=== PATIENT | male | born 1935 | race Caucasian/White ===

== ENCOUNTER → 2016-07-19 | Outpatient (CLI) | payer MEDICARE ==
[~2016-07-19] MED LIST: GLYB2.5T2 PO; IOHEXOL 180 MG/ML 10 ML VIAL. ONE; NAPR220C4 PO; methylPREDNISolone ACETATE 40 MG/ML VIAL. ONE; methylPREDNISolone ACETATE 80 MG/ML VIAL. ONE
--- NOTE | 2016-07-20 04:10 | PAIN ---
DATE OF SERVICE: 07/19/2016 INITIAL CONSULTATION CHIEF COMPLAINT: Low back and bilateral lower extremity pain, right greater than left. HISTORY OF PRESENT ILLNESS: This is a 81-year-old male who presents with history of pain in low back for about 6 months now increasing without result of any specific injury or accident he is aware of. This came up overtime with increasing pain in the low back and bilateral lower extremities, worse on the right side than the left, with posterior gluteus, posterior thighs and into the lower legs with cramping in the lower legs as well. Also, some pain in the great toes, more on the left than the right, but in the leg, more on the right than the left. The patient reports a constant ache and tightness, increased with walking and standing, sitting or lying down is the best. The patient reports it awakes him from sleep, but not every night. He reports it is a constant pain, radiating, aching in the lower extremities, again mostly in the posterior gluteus, posterior thighs, posterior calves with a constant tightness. The patient reports it does not affect his bowel and bladder control, but does affect his ability to walk significantly. He usually walks about 2 miles a day, but is unable do that for the past several months because of the pain. The patient reports no loss of motor function, but significant fatigability, especially on the right side, with walking more than about 100 yards. The patient reports no other complaints. PAST MEDICAL AND SURGICAL HISTORY: Significant for hypertension, type 2 diabetes, arthritis. Previous surgeries include right knee arthroscopy. Otherwise, the patient has been in good health. CURRENT MEDICATIONS: Include glyburide, Aleve [id number] and Tylenol. FAMILY HISTORY: Significant for diabetes and heart disease. SOCIAL HISTORY: The patient drinks alcohol only very rarely. Does not smoke. He is single. Lives on his own. He is retired. He lives locally in [place], [place]. ALLERGIES: The patient has no known drug allergies. REVIEW OF SYSTEMS: The patient's review of systems is positive for those items mentioned in the history of present illness. All systems reviewed and otherwise negative. It is complete, full and well documented on the patient's chart. IMAGING STUDIES: The patient did have MRI scan showing prominent degenerative changes in the lumbar spine with stenosis at several levels with severe spinal stenosis at L3-L4, moderate at L4-L5 and L5-S1 with broad-based central subligamentous disc protrusion at L5-S1, bilateral neural foraminal narrowing and some mild stenosis at this level as well. Also, L4-L5 shows a iigpb-az-jauzbkzs-sized broad-based disk bulge, more prominent on the left side with moderate central canal stenosis noted as well and left-sided neural foraminal narrowing. PHYSICAL EXAMINATION: VITAL SIGNS: Today, the patient's blood pressure is 128/93, pulse 84, respirations 18, temperature 97.5 degrees Fahrenheit, height 6 feet 1 inch, weight is 199 pounds. GENERAL: The patient is awake, alert, oriented, appropriate, very pleasant demeanor. HEENT: Shows normocephalic and atraumatic. Extraocular movements are intact and symmetrical. Oral cavity shows mucous membranes are moist and pink. Dentition is intact. NECK: Shows anterior throat supple without palpable lymphadenopathy noted. Swallow reflex is symmetrical. Neck shows full rotational motion of the cervical spine without tenderness or difficulty including extension and flexion. CHEST: Shows normal on inspection. Breath sounds are clear to auscultation bilaterally. HEART: Shows S1 and S2 clear. No murmurs are auscultated. Abdomen is normal in appearance, soft, nontender, nondistended. No palpable organomegaly is noted. No rebound or guarding demonstrated. BACK: Shows spine grossly midline. Normal-appearing thoracic kyphosis and lumbar lordotic curvature. No previous bruises, lesions, rashes or scars are demonstrated. With inspection, lumbar paraspinous musculature is symmetrical without evidence of atrophy or hypertrophy. On palpation, it is moderately tender in the lower lumbar distribution bilaterally, but only in the lowest aspect of the lumbar paraspinous muscles and is significantly tender, but appears equal in tenderness, right and left. No tenderness over the sacrum or sacroiliac regions. The patient shows good rotational motion of the lumbar spine, both laterally, greater than 10 degrees right and left, as well as extension greater than 10 degrees, forward flexion to 45 degrees without pain reported. Lower extremities show deep tendon reflexes at 1+ in the patellar and tendo calcaneus tendons. Motor exam is strong with dorsiflexion, extension, quadriceps and hamstring flexion rated at 5/5 bilaterally. The patient's peripheral pulses are 1+ posterior tibial and dorsalis pedis pulses. No peripheral edema is noted. No clubbing, no cyanosis. Lower extremities are warm and dry to touch, equal in color and appearance. Straight leg raise noted to be negative for significant reproduction of radicular pain bilaterally. Gaenslen's and Derek's maneuvers are negative bilaterally as well. The patient is able to stand, stand on his toes with some difficulty with ambulation. He is somewhat unbalanced when trying to stand on his toes and also reports some minor dizziness with standing up quickly, this did pass after a few seconds, but has an antalgic gait, appears to favor the right lower extremity to a mild extent, but again not using any assistive devices such as canes or walkers to ambulate. IMPRESSION: 1. This is a 81-year-old male with approximately 6-month history of increasing low back and bilateral lower extremity pain, worse on the right than the left, in a radicular fashion. 2. MRI scan as noted. 3. Arthritis. 4. Hypertension. 5. Type 2 diabetes. PLAN: Options were discussed with the patient including conservative medical management, physical therapy, interventional techniques. He would like to proceed with interventional techniques. We discussed a lumbar epidural steroid injection using description as well as anatomical models to describe the procedure. Risks were then discussed including but not limited to bleeding, infection, possibility of epidural hematoma, subsequent neurologic compromise, dural puncture, headaches, spinal cord and/or nerve damage, side effects of steroid medication and poor results regarding pain control. The patient understands and wishes to proceed. The patient will return to clinic in approximately 2 weeks for followup, was counseled on return appointment, activity level and side effects to be aware of. DIAGNOSES: Lumbar radiculopathy with lumbar degenerative disc disease and lumbar spinal stenosis. PROCEDURE: Lumbar epidural steroid injection in translaminar approach at the L5-S1 level using C-arm fluoroscopic guidance under sterile prep and drape using local anesthetic. MEDICATIONS AND INJECTIONS: Depo-Medrol 120 mg plus 10 mL preservative-free normal saline and 2 mL Isovue for contrast. CONDITION AT DISCHARGE: Stable. The patient tolerated procedure well, had no complications. MARIAH ROY MD DR: PIETER/chava JOB#: [id number] / [id number] ROMEO Tanner MD
== END | disposition home or self-care (01) ==
LOC: PNCL 10:15
PROVIDERS: ATTEND Anesthesiology
DX: M51.16 Intervertebral disc disorders with radiculopathy, lumbar region (principal); M48.06 Spinal stenosis, lumbar region; I10 Essential (primary) hypertension; E11.9 Type 2 diabetes mellitus without complications; M19.90 Unspecified osteoarthritis, unspecified site
CPT/HCPCS: 62323; J1030; J1040

== ENCOUNTER → 2016-08-01 | Outpatient (CLI) | payer MEDICARE ==
--- NOTE | 2016-08-02 03:48 | PAIN ---
DATE OF SERVICE: 08/01/2016 PROGRESS NOTE DIAGNOSES: Lumbar radiculopathy with lumbar spinal stenosis and lumbar degenerative disc disease. HISTORY OF PRESENT ILLNESS: The patient is a 81-year-old male who returns for followup status post lumbar epidural steroid injection x 1. The patient reports about 90% improvement in his low back and right greater than left lower extremity pain. The patient reports significant improvement, he is increasing his activity with much greater ease and comfort, he is sleeping well at night, only has a dull ache left in the low back and some in the calves bilaterally, but that is all. The patient reports his pain is a 4 on a scale of 10 in its absolute worst and only with extended walking or standing. The patient has been increasing activity to a significant extent and doing well without significant limitation. The patient reports no new motor or sensory deficits, no new bowel or bladder incontinence or other complaints. Just some minor pain in the low back and legs as noted. PHYSICAL EXAMINATION: VITAL SIGNS: The patient's blood pressure is 148/71, pulse 75, respirations 18, temperature 97.4 degrees Fahrenheit, height 6 feet 1 inch, weight is 193 pounds. GENERAL: The patient is awake, alert, oriented, appropriate, very pleasant demeanor. HEENT: Shows normocephalic and atraumatic. Extraocular movements are intact and symmetrical. Oral cavity: Mucous membranes are moist and pink. Dentition is intact. NECK: Shows anterior throat supple. CHEST: Shows breath sounds clear to auscultation bilaterally. HEART: Shows S1 and S2 clear. No murmurs auscultated. ABDOMEN: Soft, nontender, nondistended. BACK: Shows spine grossly midline. Lumbar paraspinous musculature shows symmetrical on inspection. With palpation, it shows some very mild tenderness only in the low lumbar distribution bilaterally, but only diffusely without radiation, without trigger points or asymmetry. Good rotational motion both laterally as well as extension and flexion of lumbar spine without pain reported. EXTREMITIES: Lower extremities show deep tendon reflexes 1+ in the patellar and tendo calcaneus tendons. Motor exam is approximately 5 on a scale 5 with dorsiflexion, extension, quadriceps and hamstring flexion and equal. Options were discussed with the patient at this time. The patient's old chart was reviewed as his current medication regimen and updated. Current review of systems updated today as well. We will proceed with a second lumbar epidural steroid injection today with fluoroscopic guidance. Risks were again discussed including but not limited to bleeding, infection, possibility of epidural hematoma, subsequent neurologic compromise, dural puncture, headaches, spinal cord and/or nerve damage, side effects of steroid medication and poor results regarding pain control. The patient understands and wishes to proceed. The patient will return to clinic in approximately 2 weeks for followup, was counseled on his return appointment, activity level and side effects to be aware of. DIAGNOSES: Lumbar radiculopathy with lumbar spinal stenosis, lumbar degenerative disc disease. PROCEDURES: Lumbar epidural steroid injection in translaminar approach at the L5-S1 level with C-arm fluoroscopic guidance under sterile prep and drape using local anesthetic. MEDICATION INJECTED: Depo-Medrol 120 mg plus 10 mL of preservative-free normal saline and 2 mL of Isovue for contrast. CONDITION AT DISCHARGE: Stable. The patient tolerated the procedure well, had no complications. MARIAH ROY MD DR: PIETER/nts JOB#: [id number] / [id number]
== END | disposition home or self-care (01) ==
LOC: PNCL 09:21
PROVIDERS: ATTEND Anesthesiology
DX: M51.16 Intervertebral disc disorders with radiculopathy, lumbar region (principal); M48.06 Spinal stenosis, lumbar region
CPT/HCPCS: 62323; J1030; J1040

== ENCOUNTER → 2018-01-29 | Outpatient (CLI) | payer BC ==
[~2018-01-29] MED LIST changes: -IOHEXOL 180 MG/ML 10 ML VIAL. ONE; -methylPREDNISolone ACETATE 40 MG/ML VIAL. ONE; -methylPREDNISolone ACETATE 80 MG/ML VIAL. ONE
[2018-01-29 11:01] LABS: GFR 71.9
[2018-01-29] MEDS: GADOBUTROL 7.5 MMOL/7.5 ML VIAL IV ONE (11:22)
--- NOTE | 2018-01-29 12:21 | RAD ---
MRI Brain with and without contrast History:LEFT EAR TINNITUS, SENSORINEURAL HEARING LOSS. Technique: Multiplanar, multi sequential pre and postcontrast MR imaging was performed of the brain, dedicated images of the internal auditory canals also obtained. Contrast: 7.5 cc Gadavist Comparison: None Findings: There is some motion degradation. There is no evidence of recent infarct or cytotoxic edema. Ventricular size is proportionate to the sulcal spaces, mild supratentorial atrophy. There is multifocal moderate T2 and FLAIR hyperintense abnormality of the supratentorial white matter bilaterally, to lesser degree of the sahra.There is no significant midline shift, intraaxial mass effect, or focal abnormal extra-axial fluid collection. There is no significant signal abnormality of the brain parenchyma. There is no nodular parenchymal or leptomeningeal enhancement. There is preservation of the major intracranial flow-voids at the skull base. The cerebellar tonsils are normal in location. There is no significant abnormality of the pineal gland or pituitary gland. There is mild bilateral ethmoid air cell mucosal thickening, negligible left maxillary sinus mucosal thickening. There are mastoid air cell are not as significantly pneumatized, otherwise aerated. There is preserved marrow signal of the clivus. There is no enhancing mass of the cerebellopontine angles or the internal auditory canals. Impression: 1. Multifocal T2 and FLAIR hyperintense signal abnormality of the supratentorial parenchyma and to lesser degree of the sahra is probably due to chronic microvascular ischemic disease in a patient this age. There is mild generalized supratentorial atrophy. 2. There is no enhancing mass of the cerebellopontine angles or the internal auditory canals. Electronically signed by: Brennen Haines MD (01/29/2018 12:18 PM) [id number]
== END | disposition home or self-care (01) ==
LOC: MRI 09:59
PROVIDERS: ATTEND Otolaryngology
DX: H91.8X2 Other specified hearing loss, left ear (principal); I10 Essential (primary) hypertension; E11.9 Type 2 diabetes mellitus without complications
CPT/HCPCS: 36415; 70553; 82565; 84520; A9585

== ENCOUNTER → 2021-10-25 | Outpatient (CLI) | payer BC ==
[~2021-10-25] MED LIST changes: +AMLO-427 PO; +ATOR40TA59 PO; +DEXAMETHASONE PRES.FREE 10 MG/ML VIAL. ONE; +IOHEXOL 180 MG/ML 10 ML VIAL. ONE; +SILD100T PO
--- NOTE | 2021-10-25 13:02 | PDOC4 ---
Procedure Note: ICD 10 Code: ICD 10 Code: M54.17 M51.87 M48.07 Procedure Note: Patient was consented for lumbar epidural steroid injection with fluoroscopic guidance. Risks were discussed including but not limited to: Bleeding, infection, possibility of epidural hematoma and subsequent neurological compromise, dural puncture, headaches, spinal cord and/or nerve damage, side effects of steroid medication, and poor results regarding pain control. Patient understands and wished to proceed. Procedure is lumbar epidural steroid injection under local anesthetic using ster ile prep and drape at the L5-S1 level using C-arm fluoroscopic guidance in both AP and lateral views medications injected is 20 mg dexamethasone +10mL preservative-free normal saline and 2 mL contrast- condition at discharge is stable patient tolerated procedure well had no complications. MARIAH ROY MD October 25, 2021 13:02
--- NOTE | 2021-10-25 13:02 | PDOC1 ---
INITIAL PAIN CONSULT DATE OF SERVICE: DOS: DATE: 10/25/21 TIME: 12:56 CHIEF COMPLAINT: Chief Complaint: Low back and bilateral lower extremity pain HISTORY OF PRESENT ILLNESS: 86-year-old male presents history of pain low back and bilateral lower extremities for many years increasing over the past 6 months or so without the result of any specific injury or accident that he is aware of in the low back and bilateral lower extremities rating the posterior gluteus posterior thighs posterior calves to the feet worse with walking standing changing positions better with sitting or laying down generally does not awaken her from sleep at night does not affect his bowel bladder control but does affect his ability to walk and he is using a cane which he has with him and holding it in his right h and today patient reports is worse with standing and walking specially getting up from a seated position pain radiating to the lower extremities after about 10 to 15 minutes of walking he is forced to sit and rest for about 5 minutes before the pain is subsided. Patient reports he used to walk several miles a day now is have difficulty walking even more than about 10 minutes patient reports a constant pain is aching and sharp in the back shooting and radiating into the lower extremities some aching as well in the back and cramping patient reports its causing some fatigability as well in the lower extremities bilaterally except right essentially equal to left. Patient rates his disability of 0-10 10 and the worst of the 7 with him house [employer] recreation social activity occupation sexual behavior 5 with self-care and life support activities. Patient has old MRI scan showing some severe stenosis and disc herniation at L5- S1 degenerative changes as well. PAST MEDICAL HISTORY: PMH: Arthritis, hypertension, type 2 diabetes, hearing loss PREVIOUS SURGERIES: Past Surgical Hx: None CURRENT MEDICATIONS: Current Meds: Active Scripts Medications Dose Route/Sig Max Daily Dose Days Date Category Atorvastatin Calcium 40 Mg Tablet 1 Tab PO QHS 10/25/21 Reported Amlodipine-Olmesartan 5-20 mg (Amlodipine Bes/Olmesartan Med) 1 Each Tablet 1 Tab PO DAILY 30 10/25/21 Reported Viagra (Sildenafil Citrate) 100 Mg Tablet 1 Tab PO PRN DAILY 10/25/21 Reported Aleve (Naproxen Sodium) 220 Mg Capsule 220 Mg PO BID 07/19/16 Reported Glyburide 2.5 Mg Tablet 1 Tab PO DAILY 07/19/16 Reported ALLERGIES; Allergies: Coded Allergies: No Known Drug Allergies (Unverified , 07/19/16) FAMILY HISTORY: Family Hx: Diabetes and heart disease SOCIAL HISTORY: Social Hx: Patient is alcohol very rarely does not smoke not use any illegal illicit recreational drugs is single is retired lives locally in [facility] REVIEW OF SYSTEMS: ROS: Positive for those items mentioned in history of present illness, all systems are reviewed, otherwise negative ,and are complete full and well-documented on patient's chart. PHYSICAL EXAM: VS: Blood pressure is 159/63 pulse 45 respirations 18 temperature 98.3 F height is 6 foot weight is 18 5 pounds. PE: PHYSICAL EXAMINATION: GENERAL: The patient is awake, alert, oriented, appropriate, very pleasant in demeanor HEENT: Shows normocephalic, atraumatic. Extraocular movements are intact and symmetrical. Oral cavity: Mucous membranes moist and pink. NECK: Shows anterior throat supple without palpable lymphadenopathy noted. Swallow reflex symmetrical. CHEST: Shows normal on inspection. Breath sounds are clear bilaterally, no rales rhonchi or wheezes auscultated. HEART: Shows S1, S2 clear. No murmurs auscultated. ABDOMEN: Soft, nontender, nondistended. No palpable organomegaly is noted. BACK: Shows spine grossly in the midline. Normal-appearing cervical lordotic curvature. There is slightly increased thoracic kyphosis, some minor flattening of the lumbar lordotic curvature. Lumbar paraspinous muscles show symmetrical on inspection, on palpation shows some moderate tenderness diffusely throughout the upper, middle and lower distribution of the paraspinous muscles bilaterally and also into the lower thoracic paraspinous musculature, firm and tender, but without specific trigger points, without radiation of pain. The patient has good rotational motion of the lumbar spine, both laterally as well as extension and flexion without significant difficulty. No tenderness over the spinous processes, sacrum or sacroiliac regions. EXTREMITIES: Lower extremities show deep tendon reflexes to in the patellar and tendo calcaneus tendons. Motor exam is 4 on a scale of 5 with right dorsiflexio n, extension, quadriceps and hamstring flexion and 4/5 on the left. Peripheral pulses are 1+ posterior tibial. No peripheral edema is noted bilaterally. Lower extremities are warm and dry to touch, equal in color and appearance. Straight leg raise noted to be positive bilaterally approximate 40 degrees, decreased with knee flexion. Gaenslen's and Derek's maneuvers are negative bilaterally. The patient is able to stand, has difficulty to understand on his toes loses balance fairly quickly and is walking with a slight shuffling gait does appear to favor the right lower extremity more than the left and is using a cane in his right hand to ambulate. SKIN: Shows warm and dry, good turgor. No edema. No sores, rashes or bruising throughout. IMPRESSION: Impression: 86-year-old male with long history of low back bilateral lower extremity pain worse over the past 6 months or so without the result of any injury or accident that he is aware. MRI scan reviewed as noted Diabetes Hearing loss Hypertension Arthritis Plan: Options were discussed with patient clued exert medical management physical therapies interventional techniques. Patient would like to pursue interventional techniques. We discussed a lumbar epidural steroid injection using descriptions as well as anatomical models to describe the procedure. Risks were discussed including but not limited to: Bleeding, infection, possibility of epidural hematoma and subsequent neurological compromise, dural puncture, headaches, spinal cord and/or nerve damage, side effects of steroid medication, and poor results regarding pain control. Patient understands and wished to proceed. Patient will return to clinic in approximate 2 weeks for follow-up, was counseled as to return appointment, activity level, and side effect to be aware of. Procedure is lumbar epidural steroid injection under local anesthetic using sterile prep and drape at the L5-S1 level using C-arm fluoroscopic guidance in both AP and lateral views medications injected is 20 mg dexamethasone +10mL preservative-free normal saline and 2 mL contrast- condition at discharge is stable patient tolerated procedure well had no complications. MARIAH ROY MD October 25, 2021 13:02
== END | disposition home or self-care (01) ==
LOC: PNCL 10:36
PROVIDERS: ATTEND Anesthesiology
DX: M51.17 Intervertebral disc disorders with radiculopathy, lumbosacral region (principal); M48.07 Spinal stenosis, lumbosacral region; M79.605 Pain in left leg; M79.604 Pain in right leg; M19.90 Unspecified osteoarthritis, unspecified site; I10 Essential (primary) hypertension; E11.9 Type 2 diabetes mellitus without complications; Z79.899 Other long term (current) drug therapy; Z98.890 Other specified postprocedural states
CPT/HCPCS: 62323; J1100; Q9965